=== PATIENT | male | born 1975 ===

== ENCOUNTER 2017-09-26 13:11 | Emergency (ER) | payer BC, MEDICARE, SELFPAY ==
[2017-09-26] MEDS ORDERED: Oxycodone/Acetaminophen 5/325 mg Tab PO STA ×2 (16:53→23:33)
[2017-09-26 17:15] LABS: HEMOGLOBIN 15.9 g/dL (12.0-18.0); MEAN CELL VOLUME 81.5 fl (80.0-94.0); MEAN CORPUSCULAR HEMOGLOBIN 27.7 pg (27.0-31.0); RBC 5.72 Mil/uL (4.40-5.90); RED CELL DISTRIBUTION WIDTH 15.5 % (11.5-14.5)
[2017-09-26] MEDS ORDERED: Oxycodone/Acetaminophen 5/325 mg Tab ONE ×2 (17:18→23:34)
[2017-09-26 17:28] LABS: ALB/GLOB RATIO 0.9 (1.0-2.1); ALBUMIN 4.4 g/dL (3.5-5.0); ALT/SGPT 20 U/L (21-72); AST/SGOT 22 U/L (17-59); BLOOD UREA NITROGEN 14 mg/dl (9-20); CALCIUM 10.3 mg/dL (8.4-10.2); GFR AFRICAN-AMERICAN > 60; GFR NON-AFRICAN AMERICAN > 60
[2017-09-26 17:30] LABS: WHITE BLOOD COUNT 12.8 K/uL (4.8-10.8)
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
--- NOTE | 2017-09-26 18:10 | RAD ---
HISTORY: admission COMPARISON: 10/25/2012 TECHNIQUE: Chest PA and lateral FINDINGS: LUNGS: No active pulmonary disease. PLEURA: No significant pleural effusion identified. No pneumothorax apparent. CARDIOVASCULAR: Normal. OSSEOUS STRUCTURES: No significant abnormalities. VISUALIZED UPPER ABDOMEN: Normal. OTHER FINDINGS: None. IMPRESSION: No active disease.
[2017-09-26] MEDS ORDERED: Insulin Regular 100 units/ml SC STA ×3 (19:39→21:17)
[2017-09-26 23:27] LABS: SQUAMOUS EPITHIAL 1 /hpf (0-5); URINE AMORPHOUS SEDIMENT RARE /ul (<OCC); URINE BILIRUBIN NEGATIVE (NEGATIVE); URINE BLOOD NEGATIVE (NEGATIVE); URINE CLARITY CLOUDY (Clear); URINE COLOR AMBER (YELLOW); URINE GLUCOSE (UA) 150 mg/dL (Normal); URINE LEUKOCYTE ESTERASE NEG Leu/uL (Negative); URINE NITRATE NEGATIVE (NEGATIVE); URINE PROTEIN 30 mg/dL (NEGATIVE); URINE UROBILINOGEN 0.2-1.0 mg/dL (0.2-1.0)
[2017-09-26] MEDS ORDERED: Sodium Chloride 0.9% 1,000 ML IV STA (23:44)
[2017-09-26 23:45] LABS: BARBITURATES, UR NEGATIVE (NEGATIVE); BENZODIAZEPINES, UR NEGATIVE (NEGATIVE); OPIATES, UR POSITIVE (NEGATIVE); PHENCYCLIDINE, UR NEGATIVE (NEGATIVE)
[2017-09-27 00:20] LABS: VENOUS BLOOD GAS BASE EXCESS 3.1 mmol/L (0.0-2.0); VENOUS BLOOD GAS PCO2 30 mmHg (40-60); VENOUS BLOOD GAS PO2 68 mm/Hg (30-55); VENOUS BLOOD PH 7.53 (7.32-7.43)
--- NOTE | 2017-09-27 01:08 | ED PDOC ---
- Laboratory Results Result Diagrams: 09/26/17 17:13 09/26/17 17:13 - ECG O2 Sat by Pulse Oximetry: 100 Medical Decision Making Medical Decision Making: Time: 00:00 Patient is signed over to me by Dr. Mary Yin pending reevaluation. 0300 Pt stable, awaiting [facility] eval 0600 Pt. requesting 4mg po dialudid which is normally prescribed to him. 0700 Pt. pending repeat BMP for clearance for [facility], will endorse to Dr. Lopez pending repeat bloodwork and final dispo Scribe Attestation: Documented by Judie Hartmann acting as a scribe for Humberto Balderas MD. Scribe Attestation: All medical record entries made by the Scribe were at my direction and personally dictated by me. I have reviewed the chart and agree that the record accurately reflects my personal performance of the history, physical exam, medical decision making, and the department course for this patient. I have also personally directed, reviewed, and agree with the discharge instructions and disposition. Disposition - Clinical Impression Clinical Impression: Depression, Chronic abdominal pain - POA Present On Arrival: None - Disposition Disposition: Transfer of Care Disposition Time: 07:00 Condition: STABLE Forms: [facility] (Arabic) Patient Signed Over To: Elmer Lopez Handoff Comments: pending repeat BMP, [facility] eval
[2017-09-27] MEDS ORDERED: Oxycodone/Acetaminophen 5/325 mg Tab PO STA ×2 (01:13→10:09)
[2017-09-27] MEDS ORDERED: HYDROmorphone 0.5 mg/0.5 ml ISec IVP STA (06:47)
--- NOTE | 2017-09-27 07:18 | ED PDOC ---
- Laboratory Results Result Diagrams: 09/26/17 17:13 09/27/17 06:51 - ECG O2 Sat by Pulse Oximetry: 95 (RA) Pulse Ox Interpretation: Normal Medical Decision Making Medical Decision Making: Patient signed out to provider at 7am from Dr. Balderas pending repeat labs and medical clearance. Vital signs are stable. Labs reviewed. In my opinion there are no current acute medical conditions that contraindicate the placement of this patient in a psychiatric unit. 0900 I requested crisis to reeval the patient for inpatient vs discharge instead of [facility]. 1000 Patient seen in ED by Dr Little. Per Dr Little patient is stable for discharge. Documented by Noemi Ratliff acting as a scribe for Elmer Lopez MD. All medical record entries made by the Scribe were at my direction and personally dictated by me. I have reviewed the chart and agree that the record accurately reflects my personal performance of the history, physical exam, medical decision making, and the department course for this patient. I have also personally directed, reviewed, and agree with the discharge instructions and disposition. Disposition - Clinical Impression Clinical Impression: Depression, Chronic abdominal pain, Hyperglycemia - POA Present On Arrival: None - Disposition Referrals: [facility] [Outside] Disposition: Routine/Home Disposition Time: 10:12 Condition: GOOD Instructions: Depression, Hyperglycemia, Adult, Chronic Pain
[2017-09-27 08:24] LABS: BLOOD UREA NITROGEN 20 mg/dl (9-20); CALCIUM 10.1 mg/dL (8.4-10.2); GFR AFRICAN-AMERICAN > 60; GFR NON-AFRICAN AMERICAN > 60
[2017-09-27 10:12] VITALS: O2SAT 95
[2017-09-27] MEDS ORDERED: Oxycodone/Acetaminophen 5/325 mg Tab ONE (10:16)
[2017-09-27 10:38] VITALS: BP 126/69; PULSE 87; RESP 18; TEMP 98.3
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
--- NOTE | 2017-09-29 12:24 | CARD ---
APPROVED REPORT EKG Measurement Heart [id number] HI [id number] <Conclusion> Normal sinus rhythm with sinus arrhythmia Normal ECG
== END 2017-09-27 10:38 | disposition home or self-care (01) ==
LOC: H.ER 13:11
DX: F32.9 Major depressive disorder, single episode, unspecified (principal); R10.9 Unspecified abdominal pain; G89.29 Other chronic pain; K57.90 Diverticulosis of intestine, part unspecified, without perforation or abscess without bleeding; F43.20 Adjustment disorder, unspecified; E11.65 Type 2 diabetes mellitus with hyperglycemia; F06.30 Mood disorder due to known physiological condition, unspecified; Z79.4 Long term (current) use of insulin
CPT/HCPCS: 71046; 80048; 80053; 80320; 80324; 80345; 80346; 80349; 80353; 80358; 80361; 81003; 82803; 82948; 83992; 85027; 93005; 96372; 96374; 96375; 99284; J1885; J2405; J7040